=== PATIENT | female | born 1960 | race African-American/Black ===

== ENCOUNTER 2019-03-07 03:28 | Emergency (ER) | payer MEDICAID, OTHER ==
[~2019-03-07] VITALS: Ht 162.6 cm; Wt 84.8 kg
[~2019-03-07 03:28] MED LIST: CIPR500T4 PO; METR500T PO
[2019-03-07 03:38] VITALS: Ht 162.6 cm; Wt 84.8 kg
[2019-03-07] MEDS ORDERED: morphine 4 MG/ML VIAL IV STA (04:07)
[2019-03-07] MEDS ORDERED: SOD CHLORIDE 0.9% 1,000 ML IV STA (04:07)
[2019-03-07] MEDS ORDERED: ONDANSETRON 4 MG INJ IV STA (04:07)
[2019-03-07] MEDS ORDERED: DICY10CA40 PO (05:28)
[2019-03-07] MEDS ORDERED: ONDA4TAB14 PO (05:28)
[2019-03-07] MEDS ORDERED: DOCU-144 PO (05:28)
--- NOTE | 2019-03-07 05:28 | ERD ---
ER Documentation Chief Complaint Chief Complaint abdominal pressure/distention with nausea and vomiting x4 hrs HPI This is a very pleasant 59-year-old abdominal pressure distention nausea vomiting after eating tuna fish sandwich. She denies any fevers or chills. 3-4 episodes of vomiting nonbilious nonbloody. Denies diarrhea. Denies any other current complaints. Pain is mild to moderate intensity no exacerbating alleviating factors. Denies any previous surgical experiences with her abdomen. ROS All systems reviewed and are negative except as per history of present illness. Medications Home Meds Active Scripts Metronidazole* (Flagyl*) 500 Mg Tablet, 500 MG PO TID for 5 Days, TAB Prov:GRADY ALFARO PA-C 05/27/16 Ciprofloxacin Hcl* (Ciprofloxacin Hcl*) 500 Mg Tablet, 500 MG PO BID for 5 Days, TAB Prov:GRADY ALFARO PA-C 05/27/16 Allergies Allergies: Coded Allergies: Penicillins (Verified Allergy, Unknown, SWELLING HIVES, 05/27/16) PMhx/Soc Medical and Surgical Hx: pt denies Medical Hx, pt denies Surgical Hx Hx Alcohol Use: No Hx Substance Use: No Hx Tobacco Use: No Smoking Status: Never smoker Physical Exam Vitals Vital Signs Date Temp Pulse Resp B/P (MAP) Pulse Ox O2 O2 Flow FiO2 Time Delivery Rate 03/07/19 97.8 90 16 144/70 98 03:38 (94) Physical Exam Const: No acute distress Head: Atraumatic Eyes: Normal Conjunctiva ENT: Normal External Ears, Nose and Mouth. Neck: Full range of motion. No meningismus. Resp: Clear to auscultation bilaterally Cardio: Regular rate and rhythm, no murmurs Abd: Soft, non tender, non distended. Normal bowel sounds Skin: No petechiae or rashes Back: No midline or flank tenderness Ext: No cyanosis, or edema Neur: Awake and alert Psych: Normal Mood and Affect Result Diagram: 03/07/1942403/07/19424 Results 24 hrs Laboratory Tests Test 03/07/19 04:25 White Blood Count 7.0 10^3/ul Red Blood Count 4.83 10^6/ul Hemoglobin 13.8 g/dl Hematocrit 42.8 % Mean Corpuscular Volume 88.6 fl Mean Corpuscular Hemoglobin 28.6 pg Mean Corpuscular Hemoglobin Concent 32.2 g/dl Red Cell Distribution Width 13.9 % Platelet Count 250 10^3/UL Mean Platelet Volume 9.4 fl Immature Granulocytes % 0.300 % Neutrophils % 82.1 % Lymphocytes % 12.7 % Monocytes % 4.3 % Eosinophils % 0.3 % Basophils % 0.3 % Nucleated Red Blood Cells % 0.0 /100WBC Immature Granulocytes # 0.020 10^3/ul Neutrophils # 5.7 10^3/ul Lymphocytes # 0.9 10^3/ul Monocytes # 0.3 10^3/ul Eosinophils # 0.0 10^3/ul Basophils # 0.0 10^3/ul Nucleated Red Blood Cells # 0.0 10^3/ul Sodium Level 142 mmol/L Potassium Level 4.4 mmol/L Chloride Level 106 mmol/L Carbon Dioxide Level 28 mmol/L Anion Gap 8 Blood Urea Nitrogen 22 mg/dl Creatinine 0.96 mg/dl Est Glomerular Filtrat Rate mL/min > 60 mL/min Glucose Level 121 mg/dl Calcium Level 9.5 mg/dl Total Bilirubin 0.5 mg/dl Direct Bilirubin 0.00 mg/dl Indirect Bilirubin 0.5 mg/dl Aspartate Amino Transf (AST/SGOT) 41 IU/L Alanine Aminotransferase (ALT/SGPT) 44 IU/L Alkaline Phosphatase 65 IU/L Total Protein 7.4 g/dl Albumin 4.4 g/dl Globulin 3.00 g/dl Albumin/Globulin Ratio 1.46 Lipase 84 U/L Current Medications Medications Dose Sig/Andrew Start Time Status Last (Trade) Ordered Route PRN Stop Time Admin Dose Reason Admin Sodium 1,000 ml @ Q1H STAT 03/07/19 DC 03/07/19 Chloride 1,000 mls/hr IV 04:07 04:32 03/07/19 05:06 Morphine 4 mg ONCE STAT 03/07/19 DC Sulfate IV 04:07 (morphine) 03/07/19 04:08 Ondansetron 4 mg ONCE STAT 03/07/19 DC 03/07/19 HCl (Zofran IV 04:07 04:32 Inj) 03/07/19 04:08 Procedures/MDM EKG: Rate/Rhythm: [Normal Sinus Rhythm] QRS, ST, T-waves: [No changes consistent w/ acute ischemia] Impression: [No evidence of ischemia or arrhythmia] Chest X-ray 1V Interpreted by me: Soft Tissue: No acute abnormalities Bones: No acute abnormalities Mediastinum/Cardiac Silhouette/Lungs: [No acute abnormalities] Medical decision making: Patient's gastrointestinal symptoms have stabilized while in the department. No evidence of severe dehydration, sepsis, or surgical abdomen. Extensive discussion with family and patient that occult disease cannot be ruled out. 8 hour recheck for repeat abdominal exam is planned. Symptomology is consistent with acute gastroenteritis. Patient will be discharged home with Bentyl Zoan, Colace for constipation noted on CT. Departure Diagnosis: Primary Impression: Nausea and vomiting Vomiting type: unspecified Vomiting Intractability: non-intractable Qualified Codes: R11.2 - Nausea with vomiting, unspecified Condition: Stable ALEX BOX Mar 07, 2019 05:28
[2019-03-07 05:46] VITALS: BP 135/75; PULSE 82; RESP 18
== END 2019-03-07 05:48 | disposition home or self-care (01) ==
LOC: E/R 03:28
DX: R11.2 Nausea with vomiting, unspecified (principal)
CPT/HCPCS: 36415; 71045; 74176; 80053; 83690; 85025; 96374; J2405; J7030; Z7502; J2270